=== PATIENT | male | born 1985 | race Caucasian/White ===

== ENCOUNTER 2020-01-10 18:55 | Emergency (ER) | payer BC ==
[2020-01-10 19:50] LABS: Absolute Lymphocytes (CBC) 2.5 K/uL (0.7-4.9); Basophils % 0.5 % (0-1.3); Hematocrit 47.3 % (39.6-49.0); Lymphocytes % 32.5 % (15.3-44.8); MPV 8.6 fL (7.6-11.3); RBC Red Blood Cell Count 5.49 M/uL (4.33-5.43)
[2020-01-10 19:51] LABS: BUN Blood Urea Nitrogen 12 mg/dL (7-18); Bicarbonate 26 mmol/L (21-32); Glucose Level 132 mg/dL (74-106); Potassium 3.8 mmol/L (3.5-5.1); Sodium Level 141 mmol/L (136-145)
--- NOTE | 2020-01-10 19:59 | RAD REPORT ---
EXAM DESCRIPTION: CT - Stone Protocol - 01/10/2020 7:33 pm CLINICAL HISTORY: Abd pain;Hematuria COMPARISON: <Comparisons> TECHNIQUE: Axial 5 mm thick images were obtained without oral or IV contrast. The [id number]-[id number] span s the entirety of the system including uppermost abdomen and lung bases. All CT scans are performed using dose optimization technique as appropriate and may include automated exposure control or mA/KV adjustment according to patient size. FINDINGS: No hydronephrosis is present and no obstructing ureteral calculi. No suspicious renal mass es. Isodense masses and pyelonephritis are not excluded on a stone protocol CT scan. No significant a drenal finding. Urinary bladder is fully contracted limiting assessment. No bladder calculi seen. Imaged portions of the liver, spleen and pancreas show no suspicious findings on non-contrast imaging . Gallbladder is tightly contracted. No biliary tree dilatation. No suspicious bowel findings. Appendix is normal. No active GI process identifiable. No hernia, mass or bulky lymphadenopathy noted. No free air, free fluid or inflammatory stranding. No significant bony abnormality. IMPRESSION: Negative CT stone protocol study. Isodense masses and pyelonephritis are not excluded on stone protocol technique.
[2020-01-10 20:35] LABS: Urine Bacteria >50 /HPF (NONE SEEN); Urine Culture Reflex Order REFLEXED; Urine RBC TNTC /HPF (NONE SEEN)
[2020-01-10 20:41] LABS: Urine Blood 3+ (NEG); Urine Glucose 1+ (NEG); Urine Protein 3+ (NEG); Urine Specific Gravity >1.030 (1.005-1.030); Urine pH 5.5 (5.0-7.0)
--- NOTE | 2020-01-10 20:45 | EDPHYS ---
Physician Documentation [facility] Name: Ruddy Puente Age: 34 yrs Sex: Male : 1985 Arrival Date: 01/10/2020 Time: 18:57 Bed 24 Private MD: Narciso Blount ED Physician Kenyon Soto HPI: 01/09 20:42 This 34 yrs old Male presents to ER via Ambulatory with complaints of kb Abdominal Pain, Urinary Problem. 20:42 The patient has not recently seen a physician. kb 20:43 The patient presents with urinary symptoms, hematuria. Onset: The symptoms/episode kb began/occurred today. Modifying factors: The symptoms are alleviated by nothing, the symptoms are aggravated by nothing. Associated signs and symptoms: Pertinent positives: abdominal pain, hematuria, Pertinent negatives: constipation, diarrhea, dysuria, fever, nausea, vomiting. Severity of symptoms: At their worst the symptoms were moderate, in the emergency department the symptoms are unchanged. The patient has not experienced similar symptoms in the past. Pt reports hematuria and suprapubic pain that started today. Historical: - Allergies: 19:06 No Known Allergies; ll1 - PMHx: 19:06 Diabetes - IDDM; ll1 - Immunization history:: Flu vaccine is not up to date. - Social history:: Patient/guardian denies using alcohol, street drugs, tobacco products, Smoking status: Patient denies any tobacco usage or history of. ROS: 20:41 Constitutional: Negative for fever, chills, and weight loss, Cardiovascular: Negative kb for chest pain, palpitations, and edema, Respiratory: Negative for shortness of breath, cough, wheezing, and pleuritic chest pain, Back: Negative for injury and pain, MS/Extremity: Negative for injury and deformity, Skin: Negative for injury, rash, and discoloration, Neuro: Negative for headache, weakness, numbness, tingling, and seizure. 20:41 Abdomen/GI: Positive for abdominal pain. 20:41 : Positive for hematuria. Exam: 20:42 Constitutional: This is a well developed, well nourished patient who is awake, alert, kb and in no acute distress. Head/Face: Normocephalic, atraumatic. Chest/axilla: Normal chest wall appearance and motion. Nontender with no deformity. No lesions are appreciated. Cardiovascular: Regular rate and rhythm with a normal S1 and S2. No gallops, murmurs, or rubs. Normal PMI, no JVD. No pulse deficits. Respiratory: Lungs have equal breath sounds bilaterally, clear to auscultation and percussion. No rales, rhonchi or wheezes noted. No increased work of breathing, no retractions or nasal flaring. Abdomen/GI: Soft, non-tender, with normal bowel sounds. No distension or tympany. No guarding or rebound. No evidence of tenderness throughout. Skin: Warm, dry with normal turgor. Normal color with no rashes, no lesions, and no evidence of cellulitis. MS/ Extremity: Pulses equal, no cyanosis. Neurovascular intact. Full, normal range of motion. Neuro: Awake and alert, GCS 15, oriented to person, place, time, and situation. Cranial nerves II-XII grossly intact. Motor strength 5/5 in all extremities. Sensory grossly intact. Cerebellar exam normal. Normal gait. Vital Signs: 19:06 BP 152 / 110; Pulse 110; Resp 18; Temp 98.8; Pulse Ox 97% ; Pain 4/10; ll1 19:22 BP 137 / 95; Pulse 108; Resp 17 S; Pulse Ox 95% on R/A; ca1 20:06 BP 124 / 82; Pulse 95; Resp 20; Pulse Ox 99% on R/A; Pain 4/10; lp1 20:54 BP 117 / 78; Pulse 105; Resp 18; Temp 98.1(O); Pulse Ox 99% on R/A; lp1 MDM: 19:08 Patient medically screened. kb 20:40 Data reviewed: vital signs, nurses notes. Data interpreted: Pulse oximetry: on room air kb is 99 %. Interpretation: normal. Counseling: I had a detailed discussion with the patient and/or guardian regarding: the historical points, exam findings, and any diagnostic results supporting the discharge/admit diagnosis, lab results, radiology results, the need for outpatient follow up, a family practitioner, to return to the emergency department if symptoms worsen or persist or if there are any questions or concerns that arise at home. 01/09 19:09 Order name: Urine Microscopic Only; Complete Time: 20:39 kb 01/09 19:09 Order name: Basic Metabolic Panel; Complete Time: 19:52 kb 01/09 19:09 Order name: CBC with Diff; Complete Time: 20:03 kb 01/09 19:21 Order name: Urine Dipstick--Ancillary (enter results); Complete Time: 20:45 mt 01/09 19:21 Order name: CT Stone Protocol; Complete Time: 20:03 kb 01/09 20:37 Order name: Urine Culture [facility] 01/09 19:09 Order name: Urine Dipstick-Ancillary (obtain specimen); Complete Time: 19:21 kb 01/09 19:09 Order name: IV Saline Lock; Complete Time: 19:28 kb 01/09 19:09 Order name: Labs collected and sent; Complete Time: 19:28 kb Administered Medications: 20:54 Drug: Cipro 500 mg Route: PO; lp1 20:54 Follow up: Response: Medication administered at discharge. lp1 Disposition: 01/10/20 20:44 Discharged to Home. Impression: Urinary tract infection, site not specified. - Condition is Stable. - Discharge Instructions: Urinary Tract Infection, Adult, [id number]. - Prescriptions for Cipro 500 mg Oral Tablet - take 1 tablet by ORAL route every 12 hours for 7 days; 14 tablet. - Medication Reconciliation Form, Thank You Letter, Antibiotic Education, Prescription Opioid Use form. - Follow up: Emergency Department; When: As needed; Reason: Worsening of condition. Follow up: Private Physician; When: 2 - 3 days; Reason: Recheck today's complaints, Continuance of care, Re-evaluation by your physician. Addendum: 01/12/2020 05:37 Co-signature as Attending Physician, Kenyon Soto MD. m Signatures: Dispatcher [employer] [facility] Deepti Hollis, POLICE DETECTIVE-C POLICE DETECTIVE-Ckb Nora Canela RN RN lp1 Tessie Bravo RN RN ca1 Nataly Ojeda RN RN 1 Kenyon Soto MD MD [id number] Corrections: (The following items were deleted from the chart) 01/09 20:55 20:44 01/10/2020 20:44 Discharged to Home. Impression: Urinary tract infection, site lp1 not specified. Condition is Stable. Forms are Medication Reconciliation Form, Thank You Letter, Antibiotic Education, Prescription Opioid Use. Follow up: Emergency Department; When: As needed; Reason: Worsening of condition. Follow up: Private Physician; When: 2 - 3 days; Reason: Recheck today's complaints, Continuance of care, Re-evaluation by your physician. kb
--- NOTE | 2020-01-10 20:45 | ER ---
Nurse's Notes [facility] Name: Ruddy Puente Age: 34 yrs Sex: Male : 1985 Arrival Date: 01/10/2020 Time: 18:57 Bed 24 Private MD: Narciso Blount Diagnosis: Urinary tract infection, site not specified Presentation: 01/09 19:06 Chief complaint: Patient states: Lower abdominal pain started today. Noticed urine was ll1 maroon in color. No fever. Coronavirus screen: Proceed with normal triage. Patient denies a cough. Patient denies shortness of breath or difficulty breathing. Patient denies measured and/or subjective temperature greater than 100.4F prior to today's visit. Patient denies travel on a cruise ship or to a country the [facility] currently lists as an affected area. Patient denies contact with known and/or suspected case of COVID-19. Ebola Screen: Patient denies travel to an Ebola-affected area in the 21 days before illness onset. Initial Sepsis Screen: Does the patient meet any 2 criteria? HR > 90 bpm. No. Patient's initial sepsis screen is negative. Risk Assessment: Do you want to hurt yourself or someone else? Patient reports no desire to harm self or others. Onset of symptoms was January 10, 2020. 19:06 Method Of Arrival: Ambulatory ll1 19:06 Acuity: FELI 3 ll1 19:13 Initial Sepsis Screen: Does the patient have a suspected source of infection? No. ca1 Patient's initial sepsis screen is negative. Historical: - Allergies: 19:06 No Known Allergies; ll1 - PMHx: 19:06 Diabetes - IDDM; ll1 - Immunization history:: Flu vaccine is not up to date. - Social history:: Patient/guardian denies using alcohol, street drugs, tobacco products, Smoking status: Patient denies any tobacco usage or history of. Screenin:11 Abuse screen: Denies threats or abuse. Denies injuries from another. Nutritional ca1 screening: No deficits noted. Tuberculosis screening: No symptoms or risk factors identified. Fall Risk None identified. Assessment: 19:11 General: Appears in no apparent distress. comfortable, Behavior is calm, cooperative, ca1 appropriate for age. Pain: Complains of pain in suprapubic area, right lower quadrant and left lower quadrant Pain radiates to low back area Pain currently is 3 out of 10 on a pain scale. Pain began this morning. Neuro: Level of Consciousness is awake, alert, obeys commands, Oriented to person, place, time, situation. Cardiovascular: Heart tones S1 S2 present Capillary refill < 3 seconds Patient's skin is warm and dry. Respiratory: Airway is patent Respiratory effort is even, unlabored, Respiratory pattern is regular, symmetrical, Breath sounds are clear bilaterally. GI: Abdomen is round non-distended, Bowel sounds present X 4 quads. Abd is soft and non tender X 4 quads. : Urine is cloudy, blood tinged, Denies burning with urination, urinary frequency, urgency. EENT: No signs and/or symptoms were reported regarding the EENT system. Derm: Skin is intact, is healthy with good turgor, Skin is pink, warm \T\ dry. Musculoskeletal: Circulation, motion, and sensation intact. Capillary refill < 3 seconds. 20:03 Reassessment: Patient appears in no apparent distress at this time. Patient aware of lp1 pending imaging results; No further needs at this time; states pelvic pain tolerable at 4/10 on pain scale. Vital Signs: 19:06 BP 152 / 110; Pulse 110; Resp 18; Temp 98.8; Pulse Ox 97% ; Pain 4/10; ll1 19:22 BP 137 / 95; Pulse 108; Resp 17 S; Pulse Ox 95% on R/A; ca1 20:06 BP 124 / 82; Pulse 95; Resp 20; Pulse Ox 99% on R/A; Pain 4/10; lp1 20:54 BP 117 / 78; Pulse 105; Resp 18; Temp 98.1(O); Pulse Ox 99% on R/A; lp1 ED Course: 18:57 Patient arrived in ED. mr 18:58 Narciso Blount MD is Private Physician. mr 19:04 [facility] Holl[facility]C [facility] kb 19:04 Kenyon Soto MD is Attending Physician. kb 19:06 Arm band placed on Patient placed in an exam room, on a stretcher. ll1 19:07 Triage completed. ll1 19:10 Tessie Bravo, MARNIE is Primary Nurse. ca1 19:11 Patient has correct armband on for positive identification. Bed in low position. Call ca1 light in reach. Side rails up X 1. Pulse ox on. NIBP on. 19:15 Urine collected: clean catch specimen, clear, merlene colored. jp3 19:28 Initial lab(s) drawn, by me, sent to lab. Inserted saline lock: 20 gauge in left jp3 antecubital area, using aseptic technique. Blood collected. Patient maintains SpO2 saturation greater than 95% on room air. 19:33 CT Stone Protocol In Process Unspecified. EDMS 20:02 Report received from MARNIE Kurtz. lp1 20:54 No provider procedures requiring assistance completed. intact, No redness/swelling at lp1 site. Pressure dressing applied. Administered Medications: 20:54 Drug: Cipro 500 mg Route: PO; lp1 20:54 Follow up: Response: Medication administered at discharge. lp1 Outcome: 20:44 Discharge ordered by . kb 20:55 Discharged to home ambulatory. lp1 20:55 Condition: good 20:55 Discharge instructions given to patient, Instructed on discharge instructions, follow up and referral plans. medication usage, Demonstrated understanding of instructions, follow-up care, medications, Prescriptions given X 1. 20:55 Patient left the ED. lp1 Signatures: Dispatcher [employer] EDMS Deepti Hollis, DRAW OPERATOR-C DRAW OPERATOR-Bradenb Nikita Riri mr Nora Canela RN RN lp1 Freddy Restrepo 3 Tessie Bravo RN RN ca1 Nataly Ojeda RN RN ll1 Corrections: (The following items were deleted from the chart) 19:22 19:11 : Denies burning with urination, urinary frequency, urgency, ca1 ca1
[2020-01-10] MEDS ORDERED: CIPROFLOXACIN HCL 500 MG TAB ONE (20:57)
[2020-01-10 21:07] VITALS: O2SAT 99
[2020-01-10 21:08] VITALS: BP 117/78; TEMP 98.1
== END 2020-01-10 20:55 | disposition home or self-care (01) ==
LOC: ER 18:55
DX: N39.0 Urinary tract infection, site not specified (principal)
CPT/HCPCS: 36415; 74176; 76377; 80048; 81003; 81015; 85025; 87086; 87088; 99284

== ENCOUNTER 2021-02-21 16:05 | Inpatient (IN) | payer BC ==
--- OUTSIDE RECORDS SUMMARY | 2021-02-21 16:08 | XMS REPORT | Continuity of Care Document ---
:1985 Author Organization [facility] t Address [address] [place] [address] Care Team Providers Name Role Phone Kishor Blount MD Attending Clinician Problems This patient has no known problems. Allergies, Adverse Reactions, Alerts This patient has no known allergies or adverse reactions. Medications This patient has no known medications. Procedures This patient has no known procedures. Encounters Start End Encounter Admission Attending Care Care Encounter Source Date/Time Date/Time Type Type Clinicians Facility Department ID 2021-02-18 2021-02-18 Telephone [facility] [id number] 00:00:00 00:00:00 [id number] [id number] Professio [phone] nal [address] 2021-02-17 2021-02-17 Refill [facility] [id number] 00:00:00 00:00:00 [facility] [id number] [facility] [place] [id number] Professio [phone] nal [address] 2021-01-23 2021-01-23 Office [place] [id number] 16:23:24 16:38:24 Visit [id number] [facility] [id number] Professio [phone] nal [address] Results This patient has no known results.
[2021-02-21 17:17] LABS: Urine Blood 1+ (Negative); Urine Glucose 1+ (Negative); Urine Protein 2+ (Negative); Urine Specific Gravity >=1.030 (1.005-1.030); Urine pH 5.5 (5.0-7.0)
--- NOTE | 2021-02-21 17:33 | RAD REPORT ---
EXAM DESCRIPTION: CT - Stone Protocol - 02/21/2021 5:17 pm CLINICAL HISTORY: Abdominal pain. FLANK PAIN COMPARISON: Stone Protocol dated 01/10/2020 TECHNIQUE: CT imaging of the abdomen and pelvis was performed without contrast. Solid organ, bowel a nd vascular assessment is limited due to lack of IV and oral contrast. All CT scans are performed using dose optimization technique as appropriate and may include automated exposure control or mA/KV adjustment according to patient size. FINDINGS: The lower lung bledsoe are clear. Mild circumferential thickening of distal esophagus. The liver, spleen, pancreas, adrenal glands and kidneys are within normal limits for a limited non-co ntrast examination. No bowel obstruction, free air, free fluid or abscess. Circumferential bladder wall thickening. Norm al appendix. The osseous structures are within normal limits. IMPRESSION: Circumferential bladder wall thickening which may represent cystitis. No renal or urete ral calculi identified. A limited non-contrast examination was performed as detailed.
[2021-02-21 18:41] LABS: Absolute Lymphocytes (CBC) 1.1 K/uL (0.7-4.9); Basophils % 0.6 % (0-1.3); Hematocrit 49.8 % (39.6-49.0); Lymphocytes % 4.7 % (15.3-44.8); MPV 8.4 fL (7.6-11.3); RBC Red Blood Cell Count 5.61 M/uL (4.33-5.43)
[2021-02-21] MEDS ORDERED: ONDANSETRON 4 MG/2 ML VIAL ONE ×3 (18:48→21:28)
[2021-02-21] MEDS ORDERED: MORPHINE 4 MG/ML SYR ONE (18:48)
[2021-02-21] MEDS ORDERED: NA CHLORIDE 0.9% 1,000 ML ONE ×3 (18:48→20:22)
[2021-02-21] MEDS ORDERED: FAMOTIDINE 20 MG/2 ML VIAL IV ONE (18:48)
[2021-02-21] MEDS ORDERED: INSULIN -REGULAR HUMAN 50 UNIT/0.5 ML ML ONE ×2 (19:20→20:22)
[2021-02-21 19:23] LABS: Blood Morphology Comment NOT SEEN (NOT SEEN); Platelet Estimate ADEQ
[2021-02-21 19:27] LABS: Albumin 4.7 g/dL (3.4-5.0); Bilirubin Direct 0.1 mg/dL (0-0.2); Bilirubin Total 0.6 mg/dL (0.2-1.0); Potassium 5.4 mmol/L (3.5-5.1); Protein, Total 9.7 g/dL (6.4-8.2)
[2021-02-21] MEDS ORDERED: CEFTRIAXONE/SWI 1gm 1 GM/10 ML SYR ONE (19:41)
--- NOTE | 2021-02-21 20:00 | EDPHYS ---
Physician Documentation [facility] Name: Ruddy Puente Age: 35 yrs Sex: Male : 1985 Arrival Date: 02/21/2021 Time: 16:08 Bed 5 Private MD: ED Physician Partha Tinajero HPI: 02/21 16:45 This 35 yrs old Male presents to ER via Ambulatory with complaints of Side cp Pain, Nausea/Vomiting. 16:45 The patient complains of pain in the left flank. The pain radiates to the abdomen. cp 16:45 Onset: The symptoms/episode began/occurred yesterday. The patient presents to the emergency department with nausea, that is moderate, vomiting, that is intermittent, described as bilious, abdominal pain, of the left side of abdomen, described as constant. Possible causes: unknown. Historical: - Allergies: 16:22 No Known Allergies; kg - Home Meds: 16:22 losartan 100 mg oral tab 1 tab once daily [Active]; Claritin 10 mg Oral tab once daily kg [Active]; [employer] SoloStar U-300 Insulin 300 unit/mL (1.5 mL) subcutaneous inpn 46 unit daily [Active]; omeprazole 20 mg Oral cpDR 1 cap once daily [Active]; - PMHx: 16:22 Diabetes - IDDM; kg - Immunization history:: Adult Immunizations not up to date, Client reports receiving the 2nd dose of the Covid vaccine, Date received: October 25, 2020 [employer] Client reports receiving the 1st dose of the Covid vaccine, October 04, 2020 [employer]. - Social history:: Smoking status: Patient denies any tobacco usage or history of. ROS: 16:50 Constitutional: Positive for poor PO intake, Negative for body aches, chills, fever. cp 16:50 Eyes: Negative for injury, pain, redness, and discharge. cp 16:50 ENT: Negative for ear pain, sore throat, difficulty swallowing, difficulty handling secretions. 16:50 Cardiovascular: Negative for chest pain, palpitations. 16:50 Respiratory: Negative for cough, shortness of breath, wheezing. 16:50 Abdomen/GI: Positive for abdominal pain, nausea and vomiting, Negative for diarrhea, constipation, hematemesis, black/tarry stool, rectal bleeding. 16:50 Back: Positive for flank pain, on the left. 16:50 : Negative for urinary symptoms, testicular pain 16:50 Skin: Negative for cellulitis, rash. 16:50 Neuro: Negative for altered mental status, dizziness, headache, syncope, weakness. 16:50 All other systems are negative. Exam: 16:55 Constitutional: The patient appears in no acute distress, alert, awake, cp non-diaphoretic, non-toxic, well developed, well nourished, obese. 16:55 Head/Face: Normocephalic, atraumatic. cp 16:55 Eyes: Periorbital structures: appear normal, Pupils: equal, round, and reactive to light and accomodation, Extraocular movements: intact throughout, Conjunctiva: normal, no exudate, no injection, Sclera: no appreciated abnormality, Lids and lashes: appear normal, bilaterally. 16:55 ENT: External ear(s): are unremarkable, Nose: is normal, Mouth: Lips: moist, Oral mucosa: pink and intact, moist, Posterior pharynx: Airway: no evidence of obstruction, patent, erythema, is not appreciated, exudate, is not appreciated. 16:55 Neck: ROM/movement: is normal, is supple, without pain, no range of motions limitations. 16:55 Chest/axilla: Inspection: normal, Palpation: is normal, no crepitus, no tenderness. 16:55 Cardiovascular: Rate: tachycardic, Rhythm: regular, Edema: is not appreciated, JVD: is not appreciated. 16:55 Respiratory: the patient does not display signs of respiratory distress, Respirations: labored breathing, is not present, shallow respirations, that is mild, Breath sounds: are clear throughout, no decreased breath sounds, no stridor, no wheezing. 16:55 Abdomen/GI: Inspection: abdomen appears normal, Bowel sounds: active, all quadrants, Palpation: soft, in all quadrants, moderate abdominal tenderness, in the anterior aspect of left lateral abdomen and posterior aspect of left lateral abdomen, rebound tenderness, is not appreciated, involuntary guarding, is not appreciated. 16:55 Back: pain, that is moderate, of the left mid back, ROM is painful, with all movement. 16:55 Skin: no rash present. 16:55 Neuro: Orientation: to person, place \T\ time. Mentation: is normal, Motor: moves all fours, strength is normal, Sensation: no obvious gross deficits. Vital Signs: 16:20 BP 154 / 106; Pulse 146; Resp 23; Temp 98.6(O); Pulse Ox 97% on R/A; Weight 117.93 kg kg (R); Height 5 ft. 6 in. (167.64 cm) (R); Pain 8/10; 19:46 BP 132 / 91; Pulse 132; Resp 24 S; Pulse Ox 99% on R/A; bb 21:00 BP 139 / 90; Pulse 127; Resp 19; Pulse Ox 99% on R/A; lp1 22:00 BP 143 / 97; Pulse 126; Resp 19; Pulse Ox 100% on R/A; lp1 16:20 Body Mass Index 41.96 (117.93 kg, 167.64 cm) kg MDM: 17:00 Differential diagnosis: nephrolithiasis, pyelonephritis, UTI, pancreatitis, gastritis, cp cholecystitis, pancreatitis, appendicitis, viral gastroenteritis, gastroenteritis, dehydration, electrolyte abnormality, DKA. 18:04 Patient medically screened. cp 20:00 Data reviewed: vital signs, nurses notes, lab test result(s). cp 20:00 Counseling: I had a detailed discussion with the patient and/or guardian regarding: the historical points, exam findings, and any diagnostic results supporting the discharge/admit diagnosis, lab results, the need for further work-up and treatment in the hospital. Physician consultation: nE RUFF was contacted at 19:45, regarding admission, to the ICU, patient's condition, and will see patient in ED, shortly. 02/21 16:32 Order name: Basic Metabolic Panel kg 02/21 16:32 Order name: CBC with Diff kg 02/21 18:48 Interpretation: Normal except: WBC 24.10; RBC 5.61; HCT 49.8; AMANUEL% 90.5; LYM% 4.7; NEUT cp A 21.9. 02/21 16:32 Order name: Hepatic Function kg 02/21 16:32 Order name: Lipase; Complete Time: 19:41 kg 02/21 16:33 Order name: Basic Metabolic Panel; Complete Time: 19:41 EDMS 02/21 16:33 Order name: Liver (Hepatic) Function; Complete Time: 19:41 EDMS 02/21 16:40 Order name: Glucose, Ancillary Testing; Complete Time: 18:10 EDMS 02/21 16:57 Order name: Ketone, Serum cp 02/21 16:57 Order name: Acetone Level; Complete Time: 18:47 EDMS 02/21 17:16 Order name: Urine Dipstick-Ancillary; Complete Time: 18:11 EDMS 02/21 18:11 Interpretation: Normal except: UGLUC 1+; UKET 4+; UBLD 1+; UPROT 2+. cp 02/21 18:48 Order name: Urine Microscopic Only cp 02/21 18:55 Order name: Procalcitonin cp 02/21 18:55 Order name: Lactate cp 02/21 18:55 Order name: Blood Culture Adult (2) cp 02/21 19:03 Order name: ABG la1 02/21 19:04 Order name: ABG Arterial Blood Gas EDMS 02/21 19:23 Order name: Manual Differential EDMS 02/21 20:28 Order name: Glucose, Ancillary Testing EDMS 02/21 21:30 Order name: Glucose, Ancillary Testing EDMS 02/21 21:39 Order name: Urine Dipstick-Ancillary EDMS 02/21 21:57 Order name: SARS-COV-2 RT PCR EDMS 02/21 22:41 Order name: Glucose, Ancillary Testing EDMS 02/22 00:29 Order name: Glucose, Ancillary Testing EDMS 02/22 00:57 Order name: Basic Metabolic Panel EDMS 02/22 01:44 Order name: Glucose, Ancillary Testing EDMS 02/22 03:22 Order name: Glucose, Ancillary Testing EDMS 02/22 04:49 Order name: Glucose, Ancillary Testing EDMS 02/22 05:01 Order name: CBC with Automated Diff EDMS 02/22 05:08 Order name: Basic Metabolic Panel EDMS 02/22 05:16 Order name: Phosphorus EDMS 02/22 05:16 Order name: Lipid Profile EDMS 02/22 05:16 Order name: Magnesium EDMS 02/22 06:09 Order name: Glucose, Ancillary Testing EDMS 02/22 06:40 Order name: Hemoglobin A1c EDMS 02/22 07:11 Order name: Glucose, Ancillary Testing EDMS 02/22 07:51 Order name: Glucose, Ancillary Testing EDMS 02/22 09:29 Order name: Glucose, Ancillary Testing EDMS 02/22 09:32 Order name: Basic Metabolic Panel EDMS 02/22 10:03 Order name: Glucose, Ancillary Testing EDMS 02/22 11:35 Order name: Glucose, Ancillary Testing EDMS 02/22 12:35 Order name: Basic Metabolic Panel EDMS 02/22 14:00 Order name: Glucose, Ancillary Testing EDMS 02/22 16:34 Order name: Glucose, Ancillary Testing EDMS 02/22 18:32 Order name: Glucose, Ancillary Testing EDMS 02/22 18:50 Order name: Basic Metabolic Panel EDMS 02/22 20:23 Order name: Glucose, Ancillary Testing EDMS 02/22 21:11 Order name: Glucose, Ancillary Testing EDMS 02/22 22:12 Order name: BMP ea 02/22 22:29 Order name: Glucose, Ancillary Testing EDMS 02/22 23:12 Order name: Basic Metabolic Panel EDMS 02/22 23:20 Order name: Glucose, Ancillary Testing EDMS 02/23 06:28 Order name: CBC with Automated Diff EDMS 02/23 06:52 Order name: Comprehensive Metabolic Panel EDMS 02/23 06:52 Order name: Phosphorus EDMS 02/23 06:52 Order name: Magnesium EDMS 02/23 08:44 Order name: Glucose, Ancillary Testing EDMS 02/23 12:09 Order name: Glucose, Ancillary Testing EDMS 02/23 17:05 Order name: Glucose, Ancillary Testing EDMS 02/23 19:08 Order name: CBC with Automated Diff EDMS 02/23 19:15 Order name: Basic Metabolic Panel EDMS 02/23 19:15 Order name: Magnesium EDMS 02/23 21:44 Order name: Glucose, Ancillary Testing EDMS 02/21 16:32 Order name: IV Saline Lock; Complete Time: 18:36 kg 02/21 16:32 Order name: Labs collected and sent; Complete Time: 18:36 kg 02/21 16:56 Order name: CT Stone Protocol; Complete Time: 18:10 cp 02/21 18:11 Interpretation: Report reviewed. cp 02/21 18:48 Order name: Urine Dipstick-Ancillary (obtain specimen); Complete Time: 21:48 cp 02/24 02:44 Order name: CBC with Automated Diff EDMS 02/24 02:56 Order name: Phosphorus EDMS 02/24 02:56 Order name: Magnesium EDMS 02/24 07:52 Order name: Glucose, Ancillary Testing EDMS Administered Medications: 18:25 Drug: NS 0.9% 1000 ml Route: IV; Rate: 1 bolus; Site: right antecubital; 7 19:47 Follow up: IV Status: Completed infusion; IV Intake: 1000ml 18:25 Drug: Pepcid (famotidine) 20 mg Route: IVP; Site: right antecubital; 7 19:47 Follow up: Response: No adverse reaction bb 18:28 Drug: Zofran (Ondansetron) 4 mg Route: PO; 7 19:47 Follow up: Response: No adverse reaction bb 18:33 Drug: morphine 4 mg Route: IVP; Site: right antecubital; 7 19:47 Follow up: Response: No adverse reaction; RASS: Alert and Calm (0) 18:50 Drug: Insulin Regular Human 10 units {Co-Signature: lp1 (Nora Canela RN).} Route: IVP; [facility] Site: right antecubital; 21:47 Follow up: Response: Blood sugar is lowered lp1 18:50 Drug: NS 0.9% 1000 ml Route: IV; Rate: 1 bolus; Site: right antecubital; 7 21:48 Follow up: IV Status: Completed infusion; IV Intake: 1000ml lp1 19:45 Drug: Rocephin (cefTRIAXone) 1 grams Route: IV; Rate: calculated rate; Site: left antecubital; 21:11 Follow up: IV Status: Completed infusion; IV Intake: 10ml lp1 20:10 Drug: NS 0.9% 1000 ml Route: IV; Rate: 1 bolus; Site: left antecubital; 21:45 Follow up: IV Status: Completed infusion; IV Intake: 1000ml lp1 20:10 Drug: Potassium Chloride 20 mEq Route: IV; Rate: calculated rate; Site: right bb antecubital; 22:15 Follow up: IV Status: Completed infusion lp1 20:15 Drug: Zofran (Ondansetron) 4 mg Route: IVP; Site: right antecubital; 21:19 Follow up: Response: No adverse reaction lp1 20:23 Drug: Insulin Drip - (Insulin Regular Human 100 units, NS 0.9% 100 ml) {Co-Signature: lp1 bb (Sidra Keith RN).} Route: IV; Rate: 10 units/hr; Site: left antecubital; 02/22 01:01 Follow up: IV Status: Infusion continued upon admission lp1 02/21 21:19 Drug: Zofran (Ondansetron) 4 mg Route: IVP; Site: right antecubital; lp1 22:00 Follow up: Response: No adverse reaction lp1 21:19 Drug: Phenergan (promethazine) 25 mg {Note: diluted in NS per verbal order.} Route: lp1 IVP; Site: left antecubital; 22:00 Follow up: Response: No adverse reaction lp1 21:45 Drug: Ativan (LORazepam) 1 mg Route: IVP; Site: right antecubital; lp1 23:00 Follow up: Response: Marked relief of symptoms lp1 Disposition: 02/25 07:52 Co-signature as Attending Physician, Partha Tinajero MD I agree with the assessment and amadou plan of care. Disposition Summary: 02/21/21 19:59 Hospitalization Ordered Hospitalization Status: Inpatient Admission cp Provider: Martin Ravi cp Condition: Fair cp Problem: new cp Symptoms: have improved cp Bed/Room Type: Standard cp Location: [facility] ER HOLD(02/24/21 08:24) [facility] Room Assignment: (02/24/21 08:24) [facility] Diagnosis - Diabetes mellitus due to underlying condition with ketoacidosis cp Discharge Instructions: - Discharge Summary Sheet iw Forms: - Work release form iw - Medication Reconciliation Form cp - SBAR form cp Signatures: Dispatcher [employer] Partha Go MD MD cha Ballard, Brenda, RN RN bb Pena, Laura, RN RN lp1 En Fontenot, TIMBER FRAMER HELPER-C TIMBER FRAMER HELPER-Cla1 Partha Wisdom PA PA cp Garcia, Cindy, RN Stephanie Rodriguez RN RN jl7 Kemar Jett RN RN ja1 Yuliet Thompson RN RN kg Laura Pena RN lp1 Sidra elaine Corrections: (The following items were deleted from the chart) 02/22 00:02/21 19:59 Intensive Care Unit cp cg 02/22 00:21 02/21 19:59 cp 02/24 08:02/22 00:21 [facility] ER HOLD cg [facility] 02/24 08:00 0808 00:21 ERHOLD- cg ja1 02/24 08:09 08:00 206 ja1 ja1 08:24 08:00 Telemetry/MedSurg (Inpatient) ja1 1 08:24 08:09 220 ja1 ja1
--- NOTE | 2021-02-21 20:00 | ER ---
Nurse's Notes [facility] Name: Ruddy Puente Age: 35 yrs Sex: Male : 1985 Arrival Date: 02/21/2021 Time: 16:08 Bed 5 Private MD: Diagnosis: Diabetes mellitus due to underlying condition with ketoacidosis Presentation: 02/21 16:20 Chief complaint: Patient states: Nausea started yesterday, vomiting and left flank pain kg starting today. Coronavirus screen: Client denies travel out of the [place] in the last 14 days. At this time, unable to obtain information related to travel outside the [place] At this time, the client does not indicate any symptoms associated with coronavirus-19. Ebola Screen: Patient negative for fever greater than or equal to 101.5 degrees Fahrenheit, and additional compatible Ebola Virus Disease symptoms Patient denies exposure to infectious person. Patient denies travel to an Ebola-affected area in the 21 days before illness onset. Initial Sepsis Screen: Does the patient meet any 2 criteria? No. Patient's initial sepsis screen is negative. Does the patient have a suspected source of infection? No. Patient's initial sepsis screen is negative. Risk Assessment: Do you want to hurt yourself or someone else? Patient reports no desire to harm self or others. Onset of symptoms was February 20, 2021. 16:20 Method Of Arrival: Ambulatory kg 16:20 Acuity: FELI 3 kg Triage Assessment: 16:22 General: Appears in no apparent distress. Behavior is calm, cooperative, quiet. Pain: kg Complains of pain in Left flank, Left upper abdomen Pain currently is 8 out of 10 on a pain scale. at worst was 8 out of 10 on a pain scale. level that patient reports is acceptable is 4 out of 10 on a pain scale. Quality of pain is described as aching, sharp, squeezing. GI: Reports upper abdominal pain, nausea, vomiting. Historical: - Allergies: 16:22 No Known Allergies; kg - Home Meds: 16:22 losartan 100 mg oral tab 1 tab once daily [Active]; Claritin 10 mg Oral tab once daily kg [Active]; [employer] SoloStar U-300 Insulin 300 unit/mL (1.5 mL) subcutaneous inpn 46 unit daily [Active]; omeprazole 20 mg Oral cpDR 1 cap once daily [Active]; - PMHx: 16:22 Diabetes - IDDM; kg - Immunization history:: Adult Immunizations not up to date, Client reports receiving the 2nd dose of the Covid vaccine, Date received: October 25, 2020 [employer] Client reports receiving the 1st dose of the Covid vaccine, October 04, 2020 [employer]. - Social history:: Smoking status: Patient denies any tobacco usage or history of. Screenin:31 Abuse screen: Denies threats or abuse. Denies injuries from another. Nutritional kg screening: No deficits noted. Tuberculosis screening: No symptoms or risk factors identified. Fall Risk None identified. Assessment: 18:10 General: Appears in no apparent distress. uncomfortable, ill, Behavior is calm, jl7 cooperative, appropriate for age. Pain: Complains of pain in left flank Pain currently is 8 out of 10 on a pain scale. Neuro: Level of Consciousness is awake, alert, obeys commands, Oriented to person, place, time, situation. Cardiovascular: Patient's skin is warm and dry. Rhythm is sinus tachycardia. Respiratory: Airway is patent Respiratory effort is even, unlabored, Respiratory pattern is symmetrical, tachypnea. GI: Abdomen is round non-distended, Reports nausea, vomiting. : Denies burning with urination, pain with urination. Derm: Skin is pink, warm \T\ dry. 19:46 Reassessment: pt is resting quietly, IV site intact, patent, with fluids infusing. bb 21:17 Reassessment: Patient vomited at this time; Provider notified; Verbal order for Zofran lp1 4mg IV, Phenergan 25mg IV in NS. Vital Signs: 16:20 BP 154 / 106; Pulse 146; Resp 23; Temp 98.6(O); Pulse Ox 97% on R/A; Weight 117.93 kg kg (R); Height 5 ft. 6 in. (167.64 cm) (R); Pain 8/10; 19:46 BP 132 / 91; Pulse 132; Resp 24 S; Pulse Ox 99% on R/A; bb 21:00 BP 139 / 90; Pulse 127; Resp 19; Pulse Ox 99% on R/A; lp1 22:00 BP 143 / 97; Pulse 126; Resp 19; Pulse Ox 100% on R/A; lp1 16:20 Body Mass Index 41.96 (117.93 kg, 167.64 cm) kg ED Course: 16:08 Patient arrived in ED. ds1 16:14 Partha Wisdom PA is PHCP. cp 16:14 Partha Tinajero MD is Attending Physician. cp 16:22 Triage completed. kg 16:22 Arm band placed on right wrist. kg 17:17 CT Stone Protocol In Process Unspecified. EDMS 18:08 Stephanie Adkins RN is Primary Nurse. jl7 18:10 Patient has correct armband on for positive identification. Placed in gown. Bed in low jl7 position. Call light in reach. Side rails up X 1. case monitor on. Pulse ox on. NIBP on. Warm blanket given. 18:20 Initial lab(s) drawn, by me, sent to lab. Inserted saline lock: 20 gauge in right jl7 antecubital area, using aseptic technique. Blood collected. 19:30 Initial lab(s) drawn, by me, sent to lab. First set of blood cultures drawn by ED bb staff, Second set of blood cultures drawn by me. Inserted saline lock: 20 gauge in left antecubital area, using aseptic technique. Blood collected. 19:47 No provider procedures requiring assistance completed. Patient admitted, IV remains in jl7 place. intact, No redness/swelling at site. 19:59 Martin Ravi DO is Hospitalizing Provider. 02/23 07:54 Primary Nurse role handed off by Stephanie Adkins RN bd Administered Medications: 02/21 18:25 Drug: NS 0.9% 1000 ml Route: IV; Rate: 1 bolus; Site: right antecubital; jl7 19:47 Follow up: IV Status: Completed infusion; IV Intake: 1000ml bb 18:25 Drug: Pepcid (famotidine) 20 mg Route: IVP; Site: right antecubital; jl7 19:47 Follow up: Response: No adverse reaction bb 18:28 Drug: Zofran (Ondansetron) 4 mg Route: PO; jl7 19:47 Follow up: Response: No adverse reaction bb 18:33 Drug: morphine 4 mg Route: IVP; Site: right antecubital; jl7 19:47 Follow up: Response: No adverse reaction; RASS: Alert and Calm (0) bb 18:50 Drug: Insulin Regular Human 10 units {Co-Signature: lp1 (Nora Canela RN).} Route: IVP; jl7 Site: right antecubital; 21:47 Follow up: Response: Blood sugar is lowered lp1 18:50 Drug: NS 0.9% 1000 ml Route: IV; Rate: 1 bolus; Site: right antecubital; jl7 21:48 Follow up: IV Status: Completed infusion; IV Intake: 1000ml lp1 19:45 Drug: Rocephin (cefTRIAXone) 1 grams Route: IV; Rate: calculated rate; Site: left bb antecubital; 21:11 Follow up: IV Status: Completed infusion; IV Intake: 10ml lp1 20:10 Drug: NS 0.9% 1000 ml Route: IV; Rate: 1 bolus; Site: left antecubital; 21:45 Follow up: IV Status: Completed infusion; IV Intake: 1000ml lp1 20:10 Drug: Potassium Chloride 20 mEq Route: IV; Rate: calculated rate; Site: right bb antecubital; 22:15 Follow up: IV Status: Completed infusion lp1 20:15 Drug: Zofran (Ondansetron) 4 mg Route: IVP; Site: right antecubital; 21:19 Follow up: Response: No adverse reaction lp1 20:23 Drug: Insulin Drip - (Insulin Regular Human 100 units, NS 0.9% 100 ml) {Co-Signature: lp1 bb (Sidra Keith RN).} Route: IV; Rate: 10 units/hr; Site: left antecubital; 02/22 01:01 Follow up: IV Status: Infusion continued upon admission 1 02/21 21:19 Drug: Zofran (Ondansetron) 4 mg Route: IVP; Site: right antecubital; 1 22:00 Follow up: Response: No adverse reaction lp1 21:19 Drug: Phenergan (promethazine) 25 mg {Note: diluted in NS per verbal order.} Route: lp1 IVP; Site: left antecubital; 22:00 Follow up: Response: No adverse reaction lp1 21:45 Drug: Ativan (LORazepam) 1 mg Route: IVP; Site: right antecubital; lp1 23:00 Follow up: Response: Marked relief of symptoms lp1 Intake: 19:47 IV: 1000ml; Total: 1000ml. bb 21:11 IV: 10ml; Total: 1010ml. lp1 21:45 IV: 1000ml; Total: 2010ml. lp1 21:48 IV: 1000ml; Total: 3010ml. lp1 Output: 21:48 Urine: 700ml (Voided); Total: 700ml. lp1 Outcome: 19:59 Decision to Hospitalize by Provider. cp 02/22 01:00 Admitted to ER Hold. Please see [facility] for further documentation. lp1 critical Instructed on the need for admit. 02/24 10:34 Patient left the ED. iw Signatures: Dispatcher [employer] EDMS Odalis Vega Demi ds1 Sidra Keith, MARNIE DYE bb Nisha Landrum, RN MARNIE iw Nora Canela, RN RN lp1 Partha Wisdom PA PA cp Leal, Jahala RN MARNIE jl7 Yuliet Thompson RN RN kg Nora Canela RN lp1 Sidra elaine
[2021-02-21] MEDS ORDERED: KCL 20 MEQ/100 mL IVPB 20 MEQ/100 ML BAG IV ONE (20:22)
[2021-02-21] MEDS ORDERED: NA CHLORIDE 0.9% 100 ML ONE (20:22)
[2021-02-21] MEDS ORDERED: NA CHLORIDE 0.9% 50 ML ONE (21:28)
[2021-02-21] MEDS ORDERED: PROMETHAZINE INJ 25 MG/ML AMP ONE ×2 (21:28→21:29)
[2021-02-21 21:38] LABS: Urine Blood 1+ (Negative); Urine Glucose 2+ (Negative); Urine Protein 2+ (Negative); Urine Specific Gravity >=1.030 (1.005-1.030)
[2021-02-21] MEDS ORDERED: LORazepam 2 MG/ML VIAL ONE (22:01)
[2021-02-21 22:05] LABS: Urine Bacteria <20 /HPF (NONE SEEN); Urine RBC <5 /HPF (NONE SEEN)
--- NOTE | 2021-02-21 22:45 | P.HP ---
Certification for Inpatient Patient admitted to: Inpatient With expected LOS: >2 Midnights Patient will require the following post-hospital care: None Practitioner: I am a practitioner with admitting privileges, knowledge of patient current condition, hospital course, and medical plan of care. Services: Services provided to patient in accordance with Admission requirements found in Title 42 Section 412.3 of the Code of Federal Regulations Patient History Date of Service: 02/21/21 Reason for admission: DKA History of Present Illness: 35-year-old male with history of diabetes mellitus type 2 presents emergency department for nausea, vomiting, high blood sugar. Patient reports has been out of his insulin for about a day now. Patient was evaluated in the emergency department, labs were significant for white blood cell count 24.1 hemoglobin 16.3 hematocrit 49.8 sodium 131 potassium 5.4 bicarb 9 BUN 27 creatinine 1.74 GFR 44 glucose 436 anion gap 28 urinalysis 4+ ketones positive large acetone serum. Chest x-ray unremarkable no other signs of infection at this time. Patient was given dose of Rocephin in the emergency department. Initiated on insulin drip after 2 L bolus. ED provider wishes to admit for DKA. - Past Medical/Surgical History -: Diabetes mellitus type 2 -: Hypertension -: None Psychosocial/ Personal History: Works in IT, lives alone - Family History Father -: Hypertension, Diabetes - Social History Smoking Status: Never smoker Alcohol use: No CD- Drugs: No Caffeine use: Yes Place of Residence: Home Review of Systems 10-point ROS is otherwise unremarkable General: Weakness, Malaise Gastrointestinal: Nausea, Vomiting Physical Examination - Physical Exam General: Alert, In no apparent distress, Oriented x3 HEENT: Atraumatic, PERRLA, Mucous membr. moist/pink, EOMI, Sclerae nonicteric Neck: Supple, 2+ carotid pulse no bruit, No LAD, Without JVD or thyroid abnormality Respiratory: Clear to auscultation bilaterally, Normal air movement Cardiovascular: Regular rate/rhythm, Normal S1 S2 Gastrointestinal: Normal bowel sounds, No tenderness Musculoskeletal: No tenderness Integumentary: No rashes Neurological: Normal speech, Normal strength at 5/5 x4 extr, Normal tone, Normal affect - Studies Laboratory Data (last 24 hrs) 02/21/21 18:23: WBC 24.10 H*, Hgb 16.3, Hct 49.8 H, Plt Count 399 02/21/21 18:23: Sodium 131 L, Potassium 5.4 H, BUN 27 H, Creatinine 1.74 H, Glucose 436 H*, Total Bilirubin 0.6, AST 7 L, ALT 29, Alkaline Phosphatase 142 H, Lipase 456 H Assessment and Plan - Plan Assessment: Insulin-dependent diabetes mellitus with ketoacidosis without coma Acute renal failure Hypertension Plan: Insulin-dependent diabetes mellitus with ketoacidosis without coma: Patient bolused 2 L normal saline the emergency department, continue with IV fluids, insulin drip, hourly Accu-Chek, every 4 hours BMP until anion gap less than 12 and patient is tolerating p.o. Continue with ICU level of care at this time. A1c, lipid panel with morning labs. Acute renal failure: Likely prerenal related to dehydration, continue IV fluids recheck with morning labs. Consult nephrology as necessary. Hypertension: Blood pressure soft, acute renal failure, will evaluate and continue home medications when appropriate. DVT PPX: Lovenox Code status: Full Discharge Plan: Home Plan to discharge in: 48 Hours - Advance Directives Does patient have a Living Will: No Does patient have a Durable POA for Healthcare: No - Code Status/Comfort Care Code Status Assessed: Yes (Full code) Critical Care: No Time Spent Managing Pts Care (In Minutes): 55
[2021-02-21] MEDS ORDERED: D5 0.45 NS 1,000 ML IV SCH (23:58)
[2021-02-21] MEDS ORDERED: INSULIN -REGULAR HUMAN 100 UNIT in NA CHLORIDE 0.9% 100 ML IV SCH (23:58)
[2021-02-21] MEDS: NACHLORIDE 0.45% 1,000 ML IV SCH (23:58)
[2021-02-21] MEDS ORDERED: MORPHINE 2 MG/ML SYR IV PRN (23:58)
[2021-02-22 00:57] LABS: Potassium 4.7 mmol/L (3.5-5.1)
[2021-02-22] MEDS ORDERED: NACHLORIDE 0.45% 1,000 ML IV ONE ×2 (02:01→14:52)
[2021-02-22 03:44] VITALS: O2SAT 98; BMI 41.6
[2021-02-22] MEDS: ONDANSETRON 4 MG/2 ML VIAL IV PRN ×2 (04:50→10:21)
[2021-02-22 04:53] LABS: Absolute Lymphocytes (CBC) 1.1 K/uL (0.7-4.9); Basophils % 0.5 % (0-1.3); Hematocrit 44.4 % (39.6-49.0); Lymphocytes % 7.3 % (15.3-44.8); RBC Red Blood Cell Count 5.13 M/uL (4.33-5.43)
[2021-02-22 05:07] LABS: Potassium 4.2 mmol/L (3.5-5.1)
[2021-02-22] MEDS ORDERED: ONDANSETRON 4 MG/2 ML VIAL ONE ×2 (05:09→10:40)
[2021-02-22 05:16] LABS: Magnesium 2.1 mg/dL (1.8-2.4); Phosphorus 2.6 mg/dL (2.5-4.9)
--- NOTE | 2021-02-22 06:37 | P.PN ---
Subjective Date of Service: 02/22/21 Primary Care Provider: Dr. Blount Chief Complaint: DKA Subjective: Other (Still with some nausea and vomiting.) Physical Examination - Vital Signs Temperature: 98.3 F Blood Pressure: 127/69 Pulse: 110 Respirations: 22 Pulse Ox (%): 96 - Studies Laboratory Data (last 24 hrs) 02/21/21 18:23: WBC 24.10 H*, Hgb 16.3, Hct 49.8 H, Plt Count 399 02/21/21 18:23: Sodium 131 L, Potassium 5.4 H, BUN 27 H, Creatinine 1.74 H, Glucose 436 H*, Total Bilirubin 0.6, AST 7 L, ALT 29, Alkaline Phosphatase 142 H, Lipase 456 H Assessment & Plan Discharge Plan: Home Plan to discharge in: 48 Hours Physician Review Additional Text: COVID: Negative CT Abdomen: COMPARISON: [facility] Protocol dated 01/10/2020 TECHNIQUE: CT imaging of the abdomen and pelvis was performed without contrast. Solid organ, bowel and vascular assessment is limited due to lack of IV and oral contrast. All CT scans are performed using dose optimization technique as appropriate and may include automated exposure control or mA/KV adjustment according to patient size. FINDINGS: The lower lung bledsoe are clear. Mild circumferential thickening of distal esophagus. The liver, spleen, pancreas, adrenal glands and kidneys are within normal limits for a limited non-contrast examination. No bowel obstruction, free air, free fluid or abscess. Circumferential bladder wall thickening. Normal appendix. The osseous structures are within normal limits. IMPRESSION: Circumferential bladder wall thickening which may represent cystitis. No renal or ureteral calculi identified. Physical Exam: General: Alert, In no apparent distress, Oriented x3 HEENT: Atraumatic, PERRLA, Mucous membr. moist/pink, EOMI, Sclerae nonicteric Neck: Supple, 2+ carotid pulse no bruit, No LAD, Without JVD or thyroid abnormality Respiratory: Clear to auscultation bilaterally, Normal air movement Cardiovascular: Regular rate/rhythm, Normal S1 S2 Gastrointestinal: Normal bowel sounds, No tenderness, mild nausea and vomiting Musculoskeletal: No tenderness Integumentary: No rashes Neurological: Normal speech, Normal strength at 5/5 x4 extr, Normal tone, Normal affect Impression: Diabetic ketoacidosis without coma with underlying diabetes mellitus type 1 Acute renal failure Hypertension Leukocytosis GERD Obesity, BMI 41.6 Plan: Diabetic ketoacidosis without coma with underlying diabetes mellitus type 1: Continue with IV fluids, continue insulin drip per protocol. Will continue to monitor Accu-Cheks. Will monitor BMP. Once gap has closed and without significant nausea and vomiting then will transition to his regular insulin. Hemoglobin A1c 9.5. Patient had been without insulin for about a day. Will continue monitor closely. Letter light protocol in place. Will provide medication for nausea. Patient takes Toujeo 46 units every a.m. and Humulin sliding scale. Anticipate continued improvement. Likely transition to his regular insulin this afternoon. I will turn the service over to the hospitalist team tomorrow. I will go over plan of care with him. Acute renal failure: Renal function improved. Continue to monitor renal function closely. Continue with IV fluids. Hypertension: Blood pressure stable off medication at this time. Will monitor closely. Leukocytosis: Likely related to above. Will monitor closely. Procalcitonin negative. Urinalysis negative for UTI. CT scan revealed lungs clear. Rocephin started empirically. Will monitor closely. GERD: Will provide PPI. DVT PPX: Lovenox Code status: Full Discharge Plan: Home Plan to discharge in: 48 Hours Time Spent Managing Pts Care (In Minutes): 55
[2021-02-22] MEDS ORDERED: D5 0.45 NS 1,000 ML IV ONE ×2 (07:48→14:52)
[2021-02-22] MEDS ORDERED: ENOXAPARIN 40 MG/0.4 ML SQ ONE (08:41)
[2021-02-22] MEDS ORDERED: CEFTRIAXONE 1 GM/NS 50 ML 50 ML IV SCH (09:00)
[2021-02-22] MEDS: ENOXAPARIN 40 MG/0.4 ML SQ SCH (09:00)
[2021-02-22 09:32] LABS: Potassium 3.9 mmol/L (3.5-5.1)
[2021-02-22] MEDS: PROMETHAZINE INJ 25 MG/ML AMP IV PRN (10:16)
[2021-02-22] MEDS ORDERED: PROMETHAZINE INJ 25 MG/ML AMP ONE (10:29)
[2021-02-22] MEDS ORDERED: SODIUM CHLORIDE 0.9% 10ML INJ IV PRN (15:43)
[2021-02-22] MEDS: PANTOPRAZOLE 40 MG INJ IVP SCH ×2 (15:43→21:00)
[2021-02-22] MEDS ORDERED: INSULIN -REGULAR HUMAN 50 UNIT/0.5 ML ML ONE (18:23)
[2021-02-22] MEDS ORDERED: NA CHLORIDE 0.9% 100 ML ONE (18:24)
[2021-02-22 18:50] LABS: Potassium 3.9 mmol/L (3.5-5.1)
[2021-02-22] MEDS: NACHLORIDE 0.45% 1,000 ML IV SCH (19:58)
[2021-02-22] MEDS ORDERED: CEFTRIAXONE/SWI 1gm 1 GM/10 ML SYR IVP SCH (20:00)
[2021-02-22] MEDS ORDERED: FAMOTIDINE 20 MG/2 ML VIAL IV ONE (20:09)
[2021-02-22] MEDS ORDERED: PANTOPRAZOLE 40 MG INJ ONE (20:10)
[2021-02-22] MEDS ORDERED: CEFTRIAXONE/SWI 1gm 1 GM/10 ML SYR ONE (20:10)
[2021-02-22] MEDS ORDERED: FAMOTIDINE 20 MG/2 ML VIAL IV SCH (21:00)
[2021-02-22 23:12] LABS: BUN Blood Urea Nitrogen 10 mg/dL (7-18); Bicarbonate 20 mmol/L (21-32); Glucose Level 214 mg/dL (74-106); Potassium 3.5 mmol/L (3.5-5.1); Sodium Level 139 mmol/L (136-145)
[2021-02-23] MEDS: INSULIN GLARGINE 100 UNITS/ML SQ SCH ×2 (00:06→21:00)
[2021-02-23] MEDS ORDERED: INSULIN GLARGINE 100 UNITS/ML SQ ONE ×2 (00:29→22:05)
[2021-02-23] MEDS: ONDANSETRON 4 MG/2 ML VIAL IV PRN ×2 (04:59→12:06)
[2021-02-23] MEDS ORDERED: ONDANSETRON 4 MG/2 ML VIAL ONE ×3 (05:16→19:46)
[2021-02-23] MEDS ORDERED: CETIRIZINE HCL 5 MG TABLET ONE (05:35)
[2021-02-23] MEDS ORDERED: PROMETHAZINE INJ 25 MG/ML AMP ONE ×4 (05:42→19:46)
[2021-02-23] MEDS: PROMETHAZINE INJ 25 MG/ML AMP IV PRN ×4 (05:49→20:00)
[2021-02-23 06:27] LABS: Absolute Lymphocytes (CBC) 1.1 K/uL (0.7-4.9); Basophils % 0.1 % (0-1.3); Hematocrit 40.8 % (39.6-49.0); Lymphocytes % 10.7 % (15.3-44.8); RBC Red Blood Cell Count 4.72 M/uL (4.33-5.43)
[2021-02-23 06:48] LABS: Albumin 3.6 g/dL (3.4-5.0); Bilirubin Total 0.5 mg/dL (0.2-1.0); Magnesium 2.1 mg/dL (1.8-2.4); Phosphorus 2.4 mg/dL (2.5-4.9); Protein, Total 7.4 g/dL (6.4-8.2)
[2021-02-23] MEDS: INSULIN -REGULAR HUMAN 50 UNIT/0.5 ML ML SQ SCH ×5 (07:30→21:00)
[2021-02-23] MEDS ORDERED: NA CHLORIDE 0.9% 1,000 ML IV ONE (08:40)
[2021-02-23] MEDS ORDERED: LORazepam 2 MG/ML VIAL IV ONE (08:40)
[2021-02-23] MEDS ORDERED: FOLIC ACID 5 MG/ML VIAL IVP SCH (09:00)
[2021-02-23] MEDS: PANTOPRAZOLE 40 MG INJ IVP SCH ×2 (09:00→21:00)
[2021-02-23] MEDS: ENOXAPARIN 40 MG/0.4 ML SQ SCH (09:00)
[2021-02-23] MEDS ORDERED: THIAMINE 200 MG/2 ML INJ IVP SCH (09:00)
[2021-02-23] MEDS ORDERED: INSULIN -REGULAR HUMAN 50 UNIT/0.5 ML ML ONE ×4 (09:01→22:05)
[2021-02-23] MEDS ORDERED: GLUCAGON 1 MG/VIAL IM PRN (09:18)
[2021-02-23] MEDS ORDERED: D50W 25 GM/50 ML SYRINGE IV PRN (09:18)
[2021-02-23] MEDS ORDERED: INSULIN 70/30 100 UNITS/ML SQ ONE ×2 (09:19→11:08)
[2021-02-23] MEDS ORDERED: PANTOPRAZOLE 40 MG INJ ONE ×2 (09:27→20:19)
[2021-02-23] MEDS ORDERED: LORazepam 2 MG/ML VIAL ONE (09:27)
[2021-02-23] MEDS ORDERED: NA CHLORIDE 0.9% 1,000 ML ONE ×3 (09:27→19:52)
[2021-02-23] MEDS ORDERED: ENOXAPARIN 40 MG/0.4 ML SQ ONE (09:27)
[2021-02-23] MEDS: NA CHLORIDE 0.9% 1,000 ML IV SCH ×2 (11:00→17:16)
[2021-02-23] MEDS: METOCLOPRAMIDE 10 MG/2mL INJ IV SCH ×3 (11:30→21:00)
[2021-02-23] MEDS ORDERED: METOCLOPRAMIDE 10 MG/2mL INJ ONE ×3 (12:38→20:19)
--- NOTE | 2021-02-23 18:07 | P.PN ---
Subjective Date of Service: 02/23/21 PATIENT CONTINUES TO HAVE NAUSEA AND VOMITING Review of Systems 10-point ROS is otherwise unremarkable Physical Examination - Vital Signs Temperature: 99 F Blood Pressure: 128/90 Pulse: 98 Respirations: 18 Pulse Ox (%): 97 - Physical Exam General: Alert, In no apparent distress, Oriented x3 Respiratory: Clear to auscultation bilaterally, Normal air movement Cardiovascular: Regular rate/rhythm, Normal S1 S2 Gastrointestinal: Normal bowel sounds, Soft and benign, Non-distended, No tenderness Musculoskeletal: No tenderness Integumentary: No rashes Neurological: Sensation intact, Cranial nerves 3-12 intact - Studies Medications List Reviewed: Yes Assessment & Plan - Problems (Diagnosis) (1) DKA (diabetic ketoacidosis) Current Visit: Yes Status: Acute - Plan 1. ANTIEMETICS 2. IVFS 3. ADVANCE DIET 4. STILL WITH NAUSEA AND VOMITING 5. REGLAN AND ADDITIONAL PROMOTILITY 6. PPI 7. GI/DVT PROPHYLAXIS Discharge Plan: Home Plan to discharge in: Greater than 2 days - Advance Directives Does patient have a Living Will: No Does patient have a Durable POA for Healthcare: No - Code Status/Comfort Care Code Status Assessed: Yes Code Status: Full Code Critical Care: No Time Spent Managing PTS Care (In Minutes): 35
[2021-02-23 19:03] LABS: Basophils % 0.7 % (0-1.3); Hematocrit 39.2 % (39.6-49.0); Lymphocytes % 20.3 % (15.3-44.8); RBC Red Blood Cell Count 4.61 M/uL (4.33-5.43)
[2021-02-23 19:14] LABS: BUN Blood Urea Nitrogen 10 mg/dL (7-18); Bicarbonate 21 mmol/L (21-32); Glucose Level 225 mg/dL (74-106); Magnesium 2.1 mg/dL (1.8-2.4); Potassium 3.5 mmol/L (3.5-5.1); Sodium Level 141 mmol/L (136-145)
[2021-02-24] MEDS: PROMETHAZINE INJ 25 MG/ML AMP IV PRN
[2021-02-24] MEDS: NA CHLORIDE 0.9% 1,000 ML IV SCH (00:20)
[2021-02-24] MEDS ORDERED: NA CHLORIDE 0.9% 1,000 ML ONE (02:12)
[2021-02-24] MEDS ORDERED: PROMETHAZINE INJ 25 MG/ML AMP ONE (02:12)
[2021-02-24] MEDS ORDERED: ONDANSETRON 4 MG/2 ML VIAL ONE (02:12)
[2021-02-24 02:42] LABS: Absolute Lymphocytes (CBC) 1.6 K/uL (0.7-4.9); Basophils % 0.3 % (0-1.3); Hematocrit 36.4 % (39.6-49.0); Lymphocytes % 21.7 % (15.3-44.8); MPV 7.8 fL (7.6-11.3)
[2021-02-24 02:55] LABS: Phosphorus 2.2 mg/dL (2.5-4.9)
[2021-02-24] MEDS: INSULIN -REGULAR HUMAN 50 UNIT/0.5 ML ML SQ SCH (07:30)
[2021-02-24] MEDS: METOCLOPRAMIDE 10 MG/2mL INJ IV SCH (07:30)
[2021-02-24 08:07] VITALS: BP 128/90; TEMP 99
[2021-02-24] MEDS ORDERED: INSULIN 70/30 100 UNITS/ML SQ SCH (08:12)
[2021-02-24] MEDS ORDERED: cloNIDine HCL 0.1 MG TAB PO STA (08:39)
[2021-02-24] MEDS ORDERED: METOPROLOL TARTRATE 5 MG/5 ML INJ IV STA (08:39)
[2021-02-24] MEDS ORDERED: clonazePAM 0.5 MG TAB PO STA (08:52)
[2021-02-24] MEDS ORDERED: INSULIN 70/30 100 UNITS/ML SQ ONE (08:58)
[2021-02-24] MEDS ORDERED: INSULIN -REGULAR HUMAN 50 UNIT/0.5 ML ML ONE (08:59)
[2021-02-24] MEDS ORDERED: METOCLOPRAMIDE 10 MG/2mL INJ ONE (09:00)
[2021-02-24] MEDS: PANTOPRAZOLE 40 MG INJ IVP SCH (09:00)
[2021-02-24] MEDS ORDERED: clonazePAM 0.5 MG TAB ONE (09:14)
[2021-02-24] MEDS ORDERED: METOPROLOL TARTRATE 5 MG/5 ML INJ IV ONE (09:14)
[2021-02-24] MEDS ORDERED: PANTOPRAZOLE 40 MG INJ ONE (09:14)
== END 2021-02-24 09:30 | disposition home or self-care (01) | DRG 638 ==
LOC: ER 16:05 → ERHOLD 19:43
PROVIDERS: ADMIT Family Medicine; ATTEND Hospitalist
DX: E10.10 Type 1 diabetes mellitus with ketoacidosis without coma (principal); N17.9 Acute kidney failure, unspecified; Z68.41 Body mass index [BMI] 40.0-44.9, adult; E66.9 Obesity, unspecified; K21.9 Gastro-esophageal reflux disease without esophagitis; I10 Essential (primary) hypertension; D72.829 Elevated white blood cell count, unspecified; Z79.4 Long term (current) use of insulin; Z79.899 Other long term (current) drug therapy; Z91.14 Patient's other noncompliance with medication regimen; Z60.2 Problems related to living alone; Z20.822 Contact with and (suspected) exposure to COVID-19
CPT/HCPCS: 36415; 74176; 76377; 80048; 80053; 80061; 80076; 81003; 81015; 82010; 82947; 83036; 83605; 83690; 83735; 84100; 84145; 85025; 87040; 99285; C9113; J0696; J1650; J1815; J2405; J2550; J2765; J3480; J7030; J7799; U0003